=== PATIENT | female | born 1995 | race Caucasian/White ===

== ENCOUNTER 2018-08-02 21:51 | Emergency (ER) | payer OTHER ==
[~2018-08-02] VITALS: Ht 162.6 cm; Wt 59.2 kg
[~2018-08-02 21:51] MED LIST: MOTRIN
[2018-08-02 21:59] VITALS: BP 127/84; PULSE 85; RESP 18; Ht 162.6 cm; Wt 59.2 kg
[2018-08-02] MEDS ORDERED: KETOROLAC 60 MG INJ IM STA (23:20)
[2018-08-02] MEDS ORDERED: AMOXICILLIN/CLAV 875 MG TAB PO ONE (23:30)
[2018-08-02] MEDS ORDERED: DEXAMETHASONE 10 MG/ML 1 ML INJ IM ONE (23:30)
[2018-08-03] MEDS ORDERED: IBUP800T48 PO (00:49)
[2018-08-03] MEDS ORDERED: AMOX1TAB9 PO (00:49)
[2018-08-03] MEDS ORDERED: ONDA4TAB14 PO (00:49)
[2018-08-03] MEDS ORDERED: DIPH25CA6 PO (00:55)
[2018-08-03] MEDS ORDERED: MELA5TAB4 PO (00:55)
--- NOTE | 2018-08-03 17:42 | ERD ---
ER Documentation Chief Complaint Chief Complaint BILAT EAR PAIN, FEVER X'S 2 DAYS HPI History of Present Illness: 23-year-old female who denies a past medical history coming in today with complaint of bilateral ear pain and fever that is been present for 2 days. Patient reports a T-max of 101.0 at 1600 on 08/02/2018. Associated symptoms include rhinorrhea, nonproductive cough. Patient also reporting insomnia and is requesting something to help her sleep. At home pharmacological/nonpharmacological treatment for symptoms: Denies Denies social concerns; Denies recent foreign travel ROS All systems reviewed and are negative except as per history of present illness. Medications Home Meds Active Scripts Melatonin (Melatonin) 5 Mg Tablet, 5 MG PO HS for insomnia, #30 TAB Prov:JARAD COCHRAN NP 08/03/18 Diphenhydramine Hcl* (Diphenhydramine Hcl*) 25 Mg Capsule, 25 MG PO QHS PRN for INSOMNIA, #30 CAP Prov:JARAD COCHRAN NP 08/03/18 Ondansetron (Ondansetron Odt) 4 Mg Tab.rapdis, 4 MG PO Q6H PRN for NAUSEA AND/OR VOMITING, #10 TAB Prov:JARAD COCHRAN [employer] 08/03/18 Amoxicillin/Potassium Clav (Amox-Clav 500-125 mg Tablet) 500-125 mg Tab, 1 TAB PO Q8 for ear infection for 10 Days, #30 TAB Prov:JARAD COCHRAN [employer] 08/03/18 Ibuprofen* (Motrin*) 800 Mg Tab, 800 MG PO Q6H PRN for PAIN AND OR ELEVATED TEMP, #30 TAB Prov:JARAD COCHRAN NP 08/03/18 Reported Medications [Motrin] No Conflict Check 06/06/10 Allergies Allergies: Coded Allergies: No Known Allergies (Verified Allergy, Mild, 05/17/09) PMhx/Soc History of Surgery: No Anesthesia Reaction: No Hx Neurological Disorder: No Hx Respiratory Disorders: No Hx Cardiac Disorders: No Hx Psychiatric Problems: No Hx Miscellaneous Medical Probl: No Hx Alcohol Use: No Hx Substance Use: No Hx Tobacco Use: No Smoking Status: Never smoker FmHx Family History: diabetes Physical Exam Vitals Vital Signs Date Temp Pulse Resp B/P (MAP) Pulse Ox O2 O2 Flow FiO2 Time Delivery Rate 08/02/18 98.9 85 18 127/84 96 21:59 (98) Physical Exam Const: No acute distress Head: Atraumatic Eyes: Normal Conjunctiva ENT: Normal External Ears, Nose and Mouth. Right tympanic membrane with erythema, no bulging, no perforation. Left tympanic membrane without erythema, no bulging, no perforation. Neck: Full range of motion. No meningismus. Resp: Clear to auscultation bilaterally Cardio: Regular rate and rhythm, no murmurs Abd: Soft, non tender, non distended. Normal bowel sounds Skin: No petechiae or rashes Back: No midline or flank tenderness Ext: No cyanosis, or edema Neur: Awake and alert Psych: Normal Mood and Affect Results 24 hrs Laboratory Tests Test 08/02/18 23:47 POC Beta HCG, Qualitative NEGATIVE Current Medications Medications Dose Sig/Seferino Start Time Status Last (Trade) Ordered Route PRN Stop Time Admin Dose Reason Admin 8 mg ONCE ONCE 08/02/18 DC 08/02/18 Dexamethasone IM 23:30 23:54 (Decadron) 08/02/18 23:31 Ketorolac 60 mg ONCE STAT 08/02/18 DC 08/02/18 Tromethamine IM 23:20 23:54 (Toradol) 08/02/18 23:24 875 mg ONCE ONCE 08/02/18 DC 08/02/18 Amoxicillin/ PO 23:30 23:59 Clavulanate 08/02/18 23:31 Potassium (Augmentin) Procedures/MDM ED course includes a thorough examination and history. Medications: Dexamethasone, ketorolac, Augmentin Imaging: Labs: Low suspicion for life-threatening medical emergency. Low suspicion for HEENT medical emergency that requires hospitalization or immediate surgical intervention. Low position for infectious process that requires IV/IM antibiotics. Low suspicion for mastoiditis. Otherwise healthy patient presenting with constellation of symptoms likely representing uncomplicated insomnia and otitis media and otalgia as characterized by history, physical exam findings . Patient reassessment: Patient received first dose of antibiotics before discharge. No signs of allergic reaction to the medication. Patient with decrease in pain after medication administration. Patient hemodynamically stable. No respiratory distress, otherwise relatively well appearing and nontoxic. Disposition given. Patient educated on diagnoses, prescriptions, follow-up care, return precautions. Strict return precautions given for worsening condition; questions answered discharge. Disposition for discharge with followup in 2 days with PCP/clinic. Departure Diagnosis: Primary Impression: Acute pain of both ears Additional Impressions: Otitis media, right Otitis media type: unspecified Qualified Codes: H66.91 - Otitis media, unspecified, right ear Insomnia Insomnia type: unspecified Qualified Codes: G47.00 - Insomnia, unspecified Condition: Stable Patient Instructions: Insomnia, Otitis Media, Abx Tx (Adult) Referrals: [facility] YOU HAVE RECEIVED A MEDICAL SCREENING EXAM AND THE RESULTS INDICATE THAT YOU DO NOT HAVE A CONDITION THAT REQUIRES URGENT TREATMENT IN THE EMERGENCY DEPARTMENT. FURTHER EVALUATION AND TREATMENT OF YOUR CONDITION CAN WAIT UNTIL YOU ARE SEEN IN YOUR DOCTORS OFFICE WITHIN THE NEXT 1-2 DAYS. IT IS YOUR RESPONSIBILITY TO MAKE AN APPOINTMENT FOR FOLOW-UP CARE. IF YOU HAVE A PRIMARY DOCTOR --you should call your primary doctor and schedule an appointment IF YOU DO NOT HAVE A PRIMARY DOCTOR YOU CAN CALL OUR PHYSICIAN REFERRAL HOTLINE AT IF YOU CAN NOT AFFORD TO SEE A PHYSICIAN YOU CAN CHOSE FROM THE FOLLOWING [facility] [address] [facility] [address] [facility] [address] [facility] [address] [facility] [address] [facility] [address] [facility]. [facility] YOU HAVE RECEIVED A MEDICAL SCREENING EXAM AND THE RESULTS INDICATE THAT YOU DO NOT HAVE A CONDITION THAT REQUIRES URGENT TREATMENT IN THE EMERGENCY DEPARTMENT. FURTHER EVALUATION AND TREATMENT OF YOUR CONDITION CAN WAIT UNTIL YOU ARE SEEN IN YOUR DOCTORS OFFICE WITHIN THE NEXT 1-2 DAYS. IT IS YOUR RESPONSIBILITY TO MAKE AN APPOINTMENT FOR FOLOW-UP CARE. IF YOU HAVE A PRIMARY DOCTOR --you should call your primary doctor and schedule and appointment IF YOU DO NOT HAVE A PRIMARY DOCTOR YOU CAN CALL OUR PHYSICIAN REFERRAL HOTLINE AT . IF YOU CAN NOT AFFORD TO SEE A PHYSICIAN YOU CAN CHOSE FROM THE FOLLOWING [facility] INSTITUTIONS: [facility] [address] [place] [address] [facility] [address] [place] [address] [facility] [address] [place] [address] Additional Instructions: Thank you very much for allowing us to participate in your care. Your health and safety is our top priority at [facility]. It is important to read all discharge instructions and education provided in your discharge packet. Call your primary care doctor TOMORROW for an appointment during the next 2-4 days and bring all the information and medications prescribed. Have prescriptions filled and follow precisely the directions on the label. -Augmentin is an antibiotic; take this medication every day as listed on your prescription. You must complete the entire course of treatment that is listed on your prescription this is very important because it takes a certain number of days to kill the bacteria that is causing the infection. --Ibuprofen is a medication that will help with pain/inflammation. At the dosage of 600 to 800 mg, this will help with inflammation/swelling. Take this medication as prescribed. -Zofran is a medication for nausea/vomitting; take this medication as needed for nausea/vomiting/decreased appetite. -Diphenhydramine is a medication that can help with insomnia. Take this medication as needed. It may cause drowsiness the next morning if you do not get a full night sleep. -Melatonin as another medication that can help with insomnia/trouble sleeping. Try this medication first to see if it helps you with falling asleep. This medication should not cause that hung over feeling like diphenhydramine can cause. If the symptoms get worse and your provider is unavailable, return to the Emergency Department immediately. JARAD COCHRAN NP Aug 03, 2018 17:42
== END 2018-08-03 01:08 | disposition home or self-care (01) ==
LOC: FTE 21:51
DX: H66.91 Otitis media, unspecified, right ear (principal); G47.00 Insomnia, unspecified
CPT/HCPCS: 81025; 96372; J1100; J1885; Z7502; Z7610